=== PATIENT | male | born 1935 | race Caucasian/White ===

== ENCOUNTER 2018-01-11 06:15 | Day surgery (SDC) | payer OTHER ==
[~2018-01-11 06:15] MED LIST: ARICEPT10 MG PO; FOLIC ACID1 MG PO; INTESTINEX680 MG PO; LEXAPRO20 MG PO; NAMENDA10 MG PO; PEPCID20 MG PO; SEROQUEL XR300 MG PO; SMZ-TMP DS 800-1 TAB PO; TRAZODONE HCL150 MG PO; ULTRACET PO
== END 2018-01-11 09:10 | disposition home or self-care (01) ==
LOC: AMB-ENDOS 06:15
DX: K62.1 Rectal polyp (principal)

== ENCOUNTER 2019-04-12 17:22 | Inpatient (IN) | payer OTHER ==
[~2019-04-12] VITALS: Ht 175.3 cm; Wt 74.8 kg
== END 2019-05-11 17:54 | disposition expired | DRG 330 ==
LOC: SURH 17:22
PROVIDERS: ADMIT Surgery
PROC: 0W9G3ZX Drainage of Peritoneal Cavity, Percutaneous Approach, Diagnostic (ICD-10-PCS; 2019-04-18)
PROC: 30233N1 Transfusion of Nonautologous Red Blood Cells into Peripheral Vein, Percutaneous Approach (ICD-10-PCS; 2019-04-21)
PROC: 0D1B0ZL Bypass Ileum to Transverse Colon, Open Approach (ICD-10-PCS; 2019-04-22)
PROC: 3E0336Z Introduction of Nutritional Substance into Peripheral Vein, Percutaneous Approach (ICD-10-PCS; 2019-04-22)
PROC: 4A19X1Z Monitoring of Respiratory Capacity, External Approach (ICD-10-PCS; 2019-04-22)
PROC: 3E0F7GC Introduction of Other Therapeutic Substance into Respiratory Tract, Via Natural or Artificial Opening (ICD-10-PCS; 2019-04-22)
PROC: 4A12X4Z Monitoring of Cardiac Electrical Activity, External Approach (ICD-10-PCS; 2019-04-22)
PROC: 0DN80ZZ Release Small Intestine, Open Approach (ICD-10-PCS; principal; 2019-04-22 13:00)
PROC: 4A033R1 Measurement of Arterial Saturation, Peripheral, Percutaneous Approach (ICD-10-PCS; 2019-04-26)
DX: C78.6 Secondary malignant neoplasm of retroperitoneum and peritoneum (principal); N17.9 Acute kidney failure, unspecified; D62 Acute posthemorrhagic anemia; K56.7 Ileus, unspecified; T81.31XA Disruption of external operation (surgical) wound, not elsewhere classified, initial encounter; L03.113 Cellulitis of right upper limb; T80.29XA Infection following other infusion, transfusion and therapeutic injection, initial encounter; R18.0 Malignant ascites; K56.51 Intestinal adhesions [bands], with partial obstruction; K57.30 Diverticulosis of large intestine without perforation or abscess without bleeding; E86.0 Dehydration; K74.69 Other cirrhosis of liver; E88.09 Other disorders of plasma-protein metabolism, not elsewhere classified; D12.8 Benign neoplasm of rectum; Y83.8 Other surgical procedures as the cause of abnormal reaction of the patient, or of later complication, without mention of misadventure at the time of the procedure; Y92.89 Other specified places as the place of occurrence of the external cause; B96.20 Unspecified Escherichia coli [E. coli] as the cause of diseases classified elsewhere; E87.5 Hyperkalemia